=== PATIENT | female | born 1990 | race American Indian/Alaskan Native ===

== ENCOUNTER 2024-01-04 20:38 | Emergency (ER) | payer MEDICAID ==
[~2024-01-04] VITALS: Ht 167.6 cm; Wt 88.0 kg
[~2024-01-04 20:38] MED LIST: CYCL-1 PO
[2024-01-04 20:57] VITALS: BP 137/88; PULSE 98; RESP 18; TEMP 98.3; O2SAT 100
[2024-01-04] MEDS ORDERED: BENZ9GEL TOP (21:16)
[2024-01-04] MEDS ORDERED: AMOX-580 PO (21:16)
== END 2024-01-04 21:55 | disposition home or self-care (01) ==
LOC: ER 20:38
DX: K02.9 Dental caries, unspecified (principal); F15.90 Other stimulant use, unspecified, uncomplicated; Z79.899 Other long term (current) drug therapy
CPT/HCPCS: 99283